=== PATIENT | male | born 1960 | race African-American/Black ===

== ENCOUNTER 2017-01-29 16:29 | Emergency (ER) | payer MEDICAID, OTHER ==
[~2017-01-29] VITALS: Ht 185.4 cm; Wt 91.5 kg
[~2017-01-29 16:29] MED LIST: ASPI325T PO; ATOR40TA28 PO; GEMF600T3 PO; LISI-662 PO; METF500T4 PO; METO50 PO; NITR.4 SL; TICA90TA PO
[2017-01-29 16:47] LABS: GLUCOSE COMMENT 1 Repeated; GLUCOSE,POINT OF CARE 95 MG/DL (70-110)
[2017-01-29] MEDS ORDERED: PERTUSS(ACELL),DIPH,TET VAC/PF 0.5 ML VIAL IM ONE (17:00)
[2017-01-29] MEDS ORDERED: LIDOCAINE HCL BUFFERED 1% 20 ML VIAL INJ ONE (17:00)
[2017-01-29 17:31] VITALS: BP 121/83
== END 2017-01-29 17:51 | disposition home or self-care (01) ==
LOC: EMS 16:33
DX: S01.511A Laceration without foreign body of lip, initial encounter (principal); I25.10 Atherosclerotic heart disease of native coronary artery without angina pectoris; I10 Essential (primary) hypertension; D68.9 Coagulation defect, unspecified; E11.9 Type 2 diabetes mellitus without complications; E78.00 Pure hypercholesterolemia, unspecified; I25.2 Old myocardial infarction; F17.210 Nicotine dependence, cigarettes, uncomplicated; Z79.82 Long term (current) use of aspirin
CPT/HCPCS: 12011; 82962; 90471; 90715; 99283; J3490

== ENCOUNTER 2021-02-11 17:31 | Emergency (ER) | payer OTHER ==
[~2021-02-11] VITALS: Ht 188 cm; Wt 103.2 kg
[~2021-02-11 17:31] MED LIST changes: +ASPI-2 PO; -ASPI325T PO; -GEMF600T3 PO; +GEMF600T90 PO; -LISI-662 PO; +LISI-894 PO; +METF-960 PO; -METF500T4 PO; -NITR.4 SL; +NITR0.4T52 SL
[2021-02-11 18:00] VITALS: BP 118/85
[2021-02-11 18:15] LABS: GLUCOSE,POINT OF CARE 133 MG/DL (70-110)
[2021-02-11 19:11] LABS: BASOPHILS % (AUTO) 0.4 % (0.0-2.0); HEMATOCRIT 41.1 % (41-53); HEMOGLOBIN 13.6 g/dL (13.5-17.5); LYMPHOCYTES # (AUTO) 2.4 K/uL (1.0-4.8); MEAN CORPUSCULAR HEMOGLOBIN 32.6 pg (26.0-34.0); MEAN CORPUSCULAR HGB CONC 33.1 G/dL (31.0-37.0); MEAN CORPUSCULAR VOLUME 99 fL (80-100); MONOCYTES % (AUTO) 7.5 % (2.0-9.0); NEUTROPHILS # (AUTO) 9.1 K/uL (1.8-7.7); NEUTROPHILS % (AUTO) 71.1 % (40.0-70.0); PLATELET COUNT (AUTO) 165 K/uL (150-450); RED BLOOD CELL COUNT(AUTO) 4.17 MIL/uL (4.50-5.90); RED CELL DISTRIBUTION WIDTH 13.4 % (11.5-14.5)
[2021-02-11 19:17] LABS: ANION GAP 10 mmol/L (8-16); CARBON DIOXIDE 25 mmol/L (22-29); CHLORIDE 103 mmol/L (98-107); CREATININE 0.86 mg/dL (0.60-1.30); GLOMERULAR FILTR. RATE CALC > 60 mL/min (>60); GLUCOSE,RANDOM 126 mg/dL (70-110); SODIUM SERUM 138 mmol/L (136-145); UREA NITROGEN, BLOOD 13 mg/dL (7-18)
[2021-02-11 19:23] LABS: ALANINE AMINOTRANSFERASE 36 U/L (12-78); ALBUMIN 4.2 g/dL (3.4-5.0); ALKALINE PHOSPHATASE 68 U/L (46-116); ASPARTATE AMINOTRANSFERASE 17 U/L (15-37); BILIRUBIN,TOTAL 0.2 mg/dL (0.1-1.0); TOTAL PROTEIN, SERUM 7.4 g/dL (6.4-8.2)
[2021-02-11] MEDS ORDERED: HYDROCODONE/ACETAMINOPHEN 5-325 MG TABLET PO ONE (19:30)
== END 2021-02-11 19:45 | disposition left against medical advice (07) ==
LOC: EMS 17:34
DX: S42.352A Displaced comminuted fracture of shaft of humerus, left arm, initial encounter for closed fracture (principal); R55 Syncope and collapse; E11.9 Type 2 diabetes mellitus without complications; E78.00 Pure hypercholesterolemia, unspecified; I10 Essential (primary) hypertension; I25.2 Old myocardial infarction; F12.90 Cannabis use, unspecified, uncomplicated; F17.210 Nicotine dependence, cigarettes, uncomplicated; Z86.73 Personal history of transient ischemic attack (TIA), and cerebral infarction without residual deficits; Z79.899 Other long term (current) drug therapy; Z79.84 Long term (current) use of oral hypoglycemic drugs; X58.XXXA Exposure to other specified factors, initial encounter; Y93.89 Activity, other specified; Y92.89 Other specified places as the place of occurrence of the external cause; Y99.8 Other external cause status
CPT/HCPCS: 29105; 36415; 71045; 73030; 73060; 80053; 82962; 84484; 85025; 93005; 99285; G0480